=== PATIENT | female | born 1950 | race Caucasian/White ===

== ENCOUNTER → 2018-10-24 09:57 | Outpatient (CLI) | payer MEDICARE, SELFPAY ==
--- NOTE | 2018-10-24 10:02 | MM_ITS ---
MM Dig screening mamm BI w/CAD CAD Screening COMPARISON: Digital mammograms with CAD 04/13/2015 and 11/27/2013 INDICATION: There is no personal or family history of breast cancer TECHNIQUE: Standard CC and MLO images were obtained. R2 CAD reviewed. FINDINGS: The breasts are composed primarily of fat with minimal scattered fibroglandular densities in each breast. There is a mole marker left breast. There is a cardiac pacemaker device projecting over left axilla somewhat obscuring the axillary tail left breast is stable benign-appearing nodular density 6:00 position left breast. There are few scattered benign-appearing microcalcifications in each breast. There is no suspicious lesion and no suspicious microcalcifications. IMPRESSION: Fatty type breast parenchyma with no suspicious lesion seen BI-RADS Category: 2 Benign Finding(s) RECOMMENDED FOLLOW-UP: 1YR - 1 YEAR FOLLOW-UP (A letter has been sent to the patient regarding results of the study.)
== END ==
PROVIDERS: PCP Family Medicine; Visit Provider Family Medicine
DX: Z12.31 Encounter for screening mammogram for malignant neoplasm of breast (principal)
CPT/HCPCS: 77067

== ENCOUNTER → 2019-07-29 12:50 | Outpatient (CLI) | payer MEDICARE, SELFPAY ==
--- NOTE | 2019-07-29 13:39 | US_ITS ---
PROCEDURE: US THYROID CLINICAL INDICATION: DYSPHAGIA,RT SIDE MASS Neck swelling COMPARISON: No exams were available for comparison FINDINGS: Right lobe: 4.4 x 1.3 x 1.9 cm. 5 mm hypoechoic nodule lower pole. 5 mm hypoechoic nodule lower pole anteriorly, 4 mm hypoechoic nodule lower pole posteriorly Left lobe: 4 x 1 x 1.8 cm. 4 mm hypoechoic nodule centrally, 6 mm hypoechoic nodule lower pole Isthmus: Unremarkable Additional findings: IMPRESSION: Mildly enlarged right lobe of the thyroid gland. Bilateral hypoechoic nodules which are low level of suspicion for malignancy. Dictated by: Lane Padilla MD 07/29/2019 18:[address] Padilla MD in [place] 07/29/2019 18:49
--- NOTE | 2019-07-29 13:45 | US_ITS ---
PROCEDURE: US SOFT TISSUE HEAD AND NECK CLINICAL INDICATION: MASS Palpable nodule near sternoclavicular joint COMPARISON: No exams were available for comparison FINDINGS: Ultrasound of the palpable nodule shows prominence of the sternoclavicular joint. No soft tissue mass evident. The submandibular and parotid glands have an unremarkable appearance. No abnormal fluid collections. IMPRESSION: Right-sided palpable nodule appears to correspond to prominent sternoclavicular joint Dictated by: Lane Padilla MD 07/29/2019 18:[address] Padilla MD in [facility] 07/29/2019 18:47
== END ==
PROVIDERS: PCP Family Medicine; Visit Provider Nurse Practitioner
DX: R13.10 Dysphagia, unspecified (principal); R22.1 Localized swelling, mass and lump, neck
CPT/HCPCS: 76536

== ENCOUNTER → 2019-08-29 08:54 | Outpatient (CLI) | payer MEDICARE, SELFPAY ==
--- NOTE | 2019-08-29 08:55 | FL_ITS ---
PROCEDURE: FL BARIUM SWALLOW CLINICAL INDICATION: dyspahgia COMPARISON: No exams were available for comparison TECHNIQUE: In the upright position the patient was observed to swallow barium in both the AP and lateral view. The cervical esophagus was examined under fluoroscopy with images obtained. The patient was then placed prone in the right anterior oblique position and was observed to swallow barium with Valsalva technique . FLUOROSCOPY TIME: 55 seconds FINDINGS: There was no evidence of aspiration. There was dysmotility with decreased primary stripping peristaltic wave. Note was made of stasis of barium in the mid esophagus with the patient lying on the table. A small extrinsic defect on the posterior esophageal wall was noted at C6-7 likely due to degenerative disc disease with anterior disc protrusion. This does not appear to cause significant luminal compromise. No filling defects or mucosal abnormalities. No masses or intrinsic strictures. There was no hiatal hernia. No gastroesophageal reflux could be elicited. IMPRESSION: Dysmotility with lack of normal primary stripping peristaltic wave and some barium stasis within mid esophagus with the patient lying on the table. No intrinsic mucosal lesions or strictures. Dictated by: Mazin Osborne 08/29/2019 10:09 Electronically signed by Mazin Osborne in [facility] 08/29/2019 10:09
== END ==
PROVIDERS: PCP Family Medicine; Visit Provider Otolaryngology
DX: R13.10 Dysphagia, unspecified (principal)
CPT/HCPCS: 74220

== ENCOUNTER → 2020-03-16 12:26 | Outpatient (CLI) | payer MEDICARE, SELFPAY ==
--- NOTE | 2020-03-16 12:32 | XR_ITS ---
PROCEDURE: XR LUMBAR SPINE MIN 4V CLINICAL INDICATION: LOW BACK PAIN COMPARISON: No exams were available for comparison FINDINGS: There is slightly accentuated lordotic curvature of the lumbar spine. All lumbar vertebrae appear intact. There is marked anterior osteophytic spurring with fusion of the osteophytes at the T12-L1 level. There is disc space narrowing at the L2-3 level with posterior osteophytic spurring. There is minimal 2-3 mm anterolisthesis of L4 on L5 likely secondary to hypertrophic facet changes at this level hypertrophic facet changes are prominent at L5-S1 level as well. There is disc space narrowing and anterior osteophytic spurring with possible fusion of the osteophytes at L5-S1. there is no pars defect. The SI joints are normal. There is a popcorn like calcification right side of the upper pelvis likely a calcified uterine fibroid. IMPRESSION: Multilevel degenerate changes most prominent thoracolumbar junction and at the L5-S1 level Dictated by: Dr. David Gómez MD 03/16/2020 13:20 Dr. David Gómez MD in [facility] 03/16/2020 13:20
== END ==
PROVIDERS: PCP Family Medicine; Visit Provider Family Medicine
DX: M54.5 Low back pain (principal)
CPT/HCPCS: 72110

== ENCOUNTER 2020-06-08 13:00 | Outpatient (RCR) | payer MEDICARE, SELFPAY ==
--- NOTE | 2020-04-12 11:42 | HMH.PTOPEV ---
PT Outpatient Evaluation Rehab PT Outpatient Evaluation Start: 04/12/20 11:00 Freq: Status: Active Protocol: Document 04/12/20 11:22 ANICETO (Rec: 04/12/20 11:42 ANICETO [id number]) Electronically Signed By Capo Carroll, PT 04/12/20 11:22 Outpatient Therapy Subjective History Subjective History Pt reports insidious R sided LBP beginning ~5 weeks ago. Pt reports R glut mm area pain w /referred pain into R side low back and R lateral hip area. REcent Lumbar Xray has revealed multi-level DDD, and pt reports h/o 'sciatic nerve problems'. Chief Complaint Pain,Stiff Symptom Type Ache,Dull Symptoms Relieved By Rest/Positioning,Heat Symptoms Aggravated By Bending/Stooping,Physical Activity,Twisting,Walking Prior Functional Limitations Lifting,Housework,Bending/ Stooping Current Functional Limitations Lifting,Housework,Sitting, Bending/Stooping Symptom Description Constant but Variable Level of pain today (0-10) 6 Pain scale - at its best (0-10) 4 Pain scale - at its worst (0-10) 8 Lumbopelvic Eval Posture Thoracic Spine Posture Standing Position Neutral Lumbar Spine Posture Standing Position Neutral Assistive device Assistive Devices Straight Cane Gait Observation General Gait Pattern Observation Antalgic Gait Palapation tenderness right paraspinal tenderness Yes: 3/4 buttock tenderness Yes: 3/4 Lumbar/Sacral Palpation Findings Tenderness Accessory Movement L-spine Vertebrae Accessory Movements Right P/A [place] that Elicit Symptoms L3 right L4 right L5 right Range of Motion Lumbar Spine Active Flexion Range of 0-70 Motion (degrees) Lumbar Spine Active Extension Range of 0-20 Motion (degrees) Left Lumbar Spine Lateral Flexion Active 0-30 Range of Motion (degrees) Right Lumbar Spine Lateral Flexion 0-30 Active Range of Motion (degrees) Lumbar Spine ROM Limitations Pain Manual Muscle Test Right Knee Extension Strength Grade 5 Normal Knee Flexion Strength Grade 4 Good Hip Flexion Strength Grade 4- Good- Hip Abduction Strength Grade 4- Good- Hip Adduction Strength Grade 4 Good Hip External Rotation Strength Grade 4- Good- Hip Internal Rotation Strength Grade 4- Good- Extensor Hallucis Longus Strength Grade 4 Good Ankle Dorsiflexion Strength Grade 4 Good Gastronemius/Maryana
--- NOTE | 2020-05-18 14:50 | HMH.RHREAS ---
Rehab Reassessment Rehab OP Re-assessment Start: 05/18/20 14:34 Freq: Status: Active Protocol: Document 05/18/20 14:34 ANICETO (Rec: 05/18/20 14:49 ANICETO [id number]) Electronically Signed By Capo Carroll, PT 05/18/20 14:34 Rehab Re-assessment Subjective Subjective PT REPORTS 4/10 LBP ON VAS (R> L SIDED-R HIP), AND 'FELT BETTER BEFORE THIS WEEKEND, BUT WRAPPING PRESENTS IT GOT REALLY BAD AGAIN'. Objective Objective Notes AROM: L-SPINE FLX 0-70, EXT 0- 25, B SB 0-30 (PAIN W/R SB) MMT: B HIP FLX 4/5, B HIP ABD/ ADD/IR/ER 4/5, B KNEE FLX/EXT 4+/5 TTP: R GLUT MED 1-07/01 Assessment Progress Assessment Progressing as Expected Assessment Notes PT W/IMPROVED STRENGTH, TTP Patient goals met STG'S 10/03 Goals Not Met STG'S 09/03, LTG'S 02/03 Plan Plan PT TO CONT. W/SKILLED P.T. TO MAKE FURTHER IMPROVEMENTS IN AROM, STRENGTH, AND TTP TO ALLOW FOR OPTIMAL FUNCTION Frequency of Therapy 1-2X/WK Duration of therapy 4-6 WKS Time and Billing Re-Eval Time 15 Re-Eval Billing Units 0 PHYSICIAN CERTIFICATION: I certify the specified therapy services for Hanane Zaragoza are required, authorized, and reviewed every 30 days.
== END 2020-06-08 13:05 | disposition home or self-care (01) ==
LOC: PT 13:00
PROVIDERS: PCP Family Medicine; Visit Provider Family Medicine
DX: M54.5 Low back pain (principal)
CPT/HCPCS: 97010; 97035; 97110; 97140; 97163; 97164

== ENCOUNTER → 2021-05-10 10:48 | Outpatient (CLI) | payer MEDICARE, SELFPAY ==
--- NOTE | 2021-05-10 10:52 | MM_ITS ---
PROCEDURE INFORMATION: Exam: MG Bilateral Screening 3D Mammography Exam date and time: 05/10/2021 10:52 AM Age: 71 years old Clinical indication: Encounter for screening mammogram for malignant neoplasm of breast TECHNIQUE: Imaging protocol: Bilateral screening tomosynthesis and 2D mammography including computer-aided detection (CAD) when performed. COMPARISON: 1. MG DIG MAMM-SCREEN YUMIKO 10/24/2018 10:10 AM 2. MG DMSB DIG MAMM-SCREEN YUMIKO 04/13/2015 10:37 AM FINDINGS: MAMMOGRAPHY: Breast composition: The breast tissue is composed of scattered areas of fibroglandular density. Mass: None. Architectural distortion: None. Calcifications: No suspicious calcifications. Asymmetric density: None. Skin thickening: None. Axillary adenopathy: None. IMPRESSION: No mammographic evidence of malignancy. Annual screening is recommended unless otherwise clinically indicated. ASSESSMENT: BI-RADS Category 1: Negative
== END ==
PROVIDERS: PCP Family Medicine; Visit Provider Family Medicine
DX: Z12.31 Encounter for screening mammogram for malignant neoplasm of breast (principal)
CPT/HCPCS: 77063; 77067